=== PATIENT | female | born 1955 | race Caucasian/White ===

== ENCOUNTER → 2016-12-06 | Outpatient (CLI) | payer OTHER ==
--- NOTE | 2016-12-06 11:19 | CTL ---
EXAMINATION TYPE: CT Low Dose Lung DATE OF EXAM ORDERED: 12/06/2016 8:50 AM HISTORY: . Lung cancer screening CT DLP: [address] CTDI: 2.03 mGy Automated exposure control for dose reduction was used. SCREENING VISIT: Initial COMPARISON: None TECHNIQUE: Low dose computed tomography scan was performed through the chest at 1 mm thick sections a nd reconstructed images in the coronal plane at [address] DIAGNOSTIC QUALITY: Limited, but interpretable FINDINGS: LUNG NODULES: None. LUNGS: COPD: Severity: None Fibrosis: Severity: None Lymph nodes: None Other findings: None RIGHT PLEURAL SPACE: Effusion: None Calcification: None Thickening: None Pneumothorax: None LEFT PLEURAL SPACE: Effusion: None Calcification: None Thickening: None Pneumothorax: None HEART: Heart Size: Normal Coronary calcification: Mild Pericardial effusion: None OTHER FINDINGS: Upper abdomen: Normal Bony thorax: Normal Supraclavicular region: Normal Other: Ascending thoracic aorta at the level of the main pulmonary artery is 3.4 cm. The main pulmona ry artery at the bifurcation is 2.2 cm. IMPRESSION: 1. No suspicious changes to suggest a lung neoplasm. Recommendations: 1. Screening chest CT as appropriate. FOLLOW UP CT CHEST RECOMMENDATION: CT LUNG RAD:
== END | disposition home or self-care (01) ==
LOC: RADCTMAIN 08:17
PROVIDERS: ATTEND Internal Medicine Pulmonary Disease
DX: Z12.2 Encounter for screening for malignant neoplasm of respiratory organs (principal); Z87.891 Personal history of nicotine dependence

== ENCOUNTER → 2018-01-11 | Outpatient (CLI) | payer OTHER ==
--- NOTE | 2018-01-13 08:05 | CTL ---
EXAMINATION TYPE: CT Low Dose Lung DATE OF EXAM ORDERED: 01/11/2018 HISTORY: 62-year-old female personal history of tobacco use. Lung cancer screening CT DLP: 83.[address] CTDI: 2.41 mGy Automated exposure control for dose reduction was used. SCREENING VISIT: Annual follow-up COMPARISON: 12/06/2016 TECHNIQUE: Low dose computed tomography scan was performed through the chest at 1 mm thick sections a nd reconstructed images in the coronal and sagittal plane at 1 mm thick sections. Coronal MIP reconst ruction performed. CT DIAGNOSTIC QUALITY: Satisfactory FINDINGS: Heart normal size with trace pericardial thickening/fluid. Aorta normal caliber with conventional arch vessel branching anatomy. Few scattered nonenlarged mediastinal lymph nodes. No thoracic adenopathy by CT size criteria. Evaluation of the lungs shows mild biapical pleural-parenchymal scarring, very mild emphysematous george nge, and mild diffuse bronchial wall thickening. Some chronic pleural parenchymal scarring at the peripheral left base. No consolidation or pleural ef fusion. No suspicious pulmonary nodule or mass. Visualized upper abdomen shows bilateral nephrolithiasis measuring up to 5 mm on the left and 3 mm on the right. Retroaortic left renal vein. Bones: No osseous destructive process. IMPRESSION: 1. LungRADS 1 - Negative. No suspicious pulmonary nodules. 2. COPD with mild emphysema. 3. Bilateral nephrolithiasis measuring up to 5 mm. RECOMMENDATION: 1. Continue with annual lung cancer screening low dose CT. 2. Smoking cessation. FOLLOW UP CT CHEST RECOMMENDATION: [address] LUNG RAD: Lung-Rad 1 Negative
== END | disposition home or self-care (01) ==
LOC: RADCTMAIN 18:06
PROVIDERS: ATTEND Internal Medicine
DX: Z12.2 Encounter for screening for malignant neoplasm of respiratory organs (principal); J43.9 Emphysema, unspecified; F17.200 Nicotine dependence, unspecified, uncomplicated

== ENCOUNTER → 2018-03-19 | Outpatient (CLI) | payer OTHER ==
--- NOTE | 2018-03-20 12:46 | MM ---
Reason for exam: screening (asymptomatic). Last mammogram was performed 7 years and 1 month ago. History: Patient is postmenopausal. Benign excisional biopsy of the left breast, 1987. Physical Findings: A clinical breast exam by your physician is recommended on an annual basis and results should be correlated with mammographic findings. MG 3D Screening Mammo W/Cad Bilateral CC and MLO view(s) were taken. Prior study comparison: February 09, 2011, mammogram, performed at [facility]. February 11, 2008, mammogram, performed at [facility]. The breast tissue is heterogeneously dense. This may lower the sensitivity of mammography. Stable benign calcifications. No significant changes when compared with prior studies. ASSESSMENT: Benign, BI-RAD 2 RECOMMENDATION: Routine screening mammogram of both breasts in 1 year.
== END | disposition home or self-care (01) ==
LOC: RADMAMWWP 12:33
PROVIDERS: ATTEND Obstetrics & Gynecology
DX: Z12.31 Encounter for screening mammogram for malignant neoplasm of breast (principal)
CPT/HCPCS: 77063; 77067